=== PATIENT | female | born 1965 | race Caucasian/White ===

== ENCOUNTER → 2018-05-10 | Outpatient (CLI) | payer OTHER ==
--- NOTE | 2018-05-13 13:40 | MM ---
Reason for exam: screening (asymptomatic). Last mammogram was performed 1 year and 10 months ago. History: Patient is postmenopausal. Family history of premenopausal breast cancer in mother at age 50. Physical Findings: A clinical breast exam by your physician is recommended on an annual basis and results should be correlated with mammographic findings. MG Screening Mammo w CAD Bilateral CC and MLO view(s) were taken. Prior study comparison: July 14, 2016, bilateral MG screening mammo w CAD. June 24, 2015, bilateral MG screening mammo w CAD. There are scattered fibroglandular densities. Benign calcifications bilaterally. No significant changes when compared with prior studies. ASSESSMENT: Benign, BI-RAD 2 RECOMMENDATION: Routine screening mammogram of both breasts in 1 year.
== END | disposition home or self-care (01) ==
LOC: RADMAMWWP 13:32
PROVIDERS: ATTEND Family Medicine
DX: Z12.31 Encounter for screening mammogram for malignant neoplasm of breast (principal); Z80.3 Family history of malignant neoplasm of breast
CPT/HCPCS: 77067

== ENCOUNTER 2018-09-27 13:37 | Emergency (ER) | payer OTHER ==
[2018-09-27 14:07] VITALS: BP 146/93; PULSE 85; RESP 16; TEMP 98.5
[2018-09-27] MEDS ORDERED: KETOROLAC 60 MG/2 ML VIAL IM STA (14:20)
[2018-09-27] MEDS ORDERED: DIPH,PERTUS(ACELL)TETVAC-LF 0.5 ML VIAL IM ONE (14:20)
--- NOTE | 2018-09-27 14:23 | ED ---
General Adult HPI - General Chief complaint: Dental/Oral Stated complaint: dental pain Source: patient, RN notes reviewed Mode of arrival: ambulatory Limitations: no limitations - History of Present Illness Initial comments: Patient is a 53-year-old female who presents the emergency department with complaint of left upper and lower dental pain. She reports that she is scheduled on Sunday for tooth extraction. She states she is taking amoxicillin and clindamycin. She also reports taking Tylenol 3. She reports she is not up to date on her tetanus vaccination. Patient denies any recent fever, chills, shortness of breath, chest pain, back pain, abdominal pain, nausea or vomiting, numbness or tingling, headaches or visual changes, or any other complaints. - Related Data Allergies Allergy/AdvReac Type Severity Reaction Status Date / Time acetaminophen Allergy Unknown Verified 09/27/18 14:08 [From Darvocet-N] cyclobenzaprine Allergy Unknown Verified 09/27/18 14:08 [From Flexeril] hydrocodone Allergy Unknown Verified 09/27/18 14:08 propoxyphene Allergy Unknown Verified 09/27/18 14:08 [From Darvocet-N] Review of Systems ROS Statement: Those systems with pertinent positive or pertinent negative responses have been documented in the HPI. ROS Other: All systems not noted in ROS Statement are negative. Past Medical History Past Medical History: Osteoarthritis (OA), Thyroid Disorder Additional Past Medical History / Comment(s): CELIAC DISEASE, FIBROMYALGIA. History of Any Multi-Drug Resistant Organisms: None Reported Past Surgical History: Orthopedic Surgery Additional Past Surgical History / Comment(s): LEFT KNEE REPLACEMENT Past Psychological History: No Psychological Hx Reported Smoking Status: Current every day smoker Past Alcohol Use History: Occasional Past Drug Use History: None Reported General Exam Limitations: no limitations General appearance: alert, in no apparent distress Head exam: Present: atraumatic, normocephalic Eye exam: Present: normal appearance ENT exam: Present: normal oropharynx, other (No visible dental abscess or drainage.) Respiratory exam: Present: normal lung sounds bilaterally Cardiovascular Exam: Present: regular rate, normal rhythm Neurological exam: Present: alert, oriented X3 Psychiatric exam: Present: normal affect, normal mood Course Vital Signs 09/27/18 14:04 Temperature 98.5 F Pulse Rate 85 Respiratory 16 Rate Blood Pressure 146/93 O2 Sat by Pulse 99 Oximetry Medical Decision Making - Medical Decision Making Updated tetanus vaccination here. Given Toradol for pain. Case discussed in detail with attending physician Dr. Ash. Disposition Clinical Impression: Toothache Disposition: HOME SELF-CARE Condition: Good Instructions (If sedation given, give patient instructions): Toothache (ED) Additional Instructions: Follow-up with your PCP in 1 to 2 days. Please keep your appointment with the oral surgeon. Use over the counter Orajel as needed. Return to the emergency department if your symptoms worsen or other concerns. Is patient prescribed a controlled substance at d/c from ED?: No Referrals: Mandy Navarrete DO [Primary Care Provider] - 1-2 days Time of Disposition: 15:36
== END 2018-09-27 15:45 | disposition home or self-care (01) ==
LOC: EC 13:37
DX: K08.89 Other specified disorders of teeth and supporting structures (principal); Z23 Encounter for immunization; F17.200 Nicotine dependence, unspecified, uncomplicated; Z88.6 Allergy status to analgesic agent; Z88.5 Allergy status to narcotic agent; Z88.8 Allergy status to other drugs, medicaments and biological substances; Z96.652 Presence of left artificial knee joint
CPT/HCPCS: 90715; 99282; 90471; 96372; J1885

== ENCOUNTER 2020-02-04 19:19 | Emergency (ER) | payer OTHER ==
[2020-02-04 19:23] VITALS: BP 136/83; PULSE 82; RESP 18; TEMP 98.3
[2020-02-04] MEDS ORDERED: LIDOCAINE 1% INJ 10MG/ML (20 ML MDV) SQ ONE (19:42)
[2020-02-04] MEDS ORDERED: AMOXIC-POT CLAV 875MG STARTER PACK 2 TAB BTL PO STA (19:42)
--- NOTE | 2020-02-04 19:50 | ED ---
Animal Bite HPI - General Chief Complaint: Animal Bite Stated Complaint: Dog Bite Time Seen by Provider: 02/04/20 19:27 Source: patient, RN notes reviewed, old records reviewed Mode of arrival: ambulatory Limitations: no limitations - History of Present Illness Initial Comments: Tabatha is a 54-year-old female presents emergency department today for evaluation with complaints of dog bite over her right thenar eminence. She has a small puncture wound where her own cockatoo bit her. Patient reports that the dog is up-to-date on vaccines and she is up-to-date on her tetanus within the last 5 years. Patient states that she has full range of motion of the thumb. She denies any other injuries at this time. - Related Data Previous Rx's Medication Instructions Recorded Amoxic-Pot Clav 875-125Mg 1 tab PO Q12HR #20 tablet 02/04/20 [Augmentin 875-125] Fluconazole [Diflucan] 150 mg PO ONCE #3 tab 02/04/20 Allergies Allergy/AdvReac Type Severity Reaction Status Date / Time acetaminophen Allergy Unknown Verified 02/04/20 19:23 [From Darvocet-N] cyclobenzaprine Allergy Unknown Verified 02/04/20 19:23 [From Flexeril] hydrocodone Allergy Unknown Verified 02/04/20 19:23 propoxyphene Allergy Unknown Verified 02/04/20 19:23 [From Darvocet-N] Review of Systems ROS Statement: Those systems with pertinent positive or pertinent negative responses have been documented in the HPI. ROS Other: All systems not noted in ROS Statement are negative. Past Medical History Past Medical History: Osteoarthritis (OA), Thyroid Disorder Additional Past Medical History / Comment(s): CELIAC DISEASE, FIBROMYALGIA. History of Any Multi-Drug Resistant Organisms: None Reported Past Surgical History: Orthopedic Surgery Additional Past Surgical History / Comment(s): LEFT KNEE REPLACEMENT Past Psychological History: No Psychological Hx Reported Smoking Status: Current every day smoker Past Alcohol Use History: Occasional Past Drug Use History: None Reported General Exam Limitations: no limitations General appearance: alert, in no apparent distress Head exam: Present: atraumatic, normocephalic, normal inspection Eye exam: Present: normal appearance, PERRL, EOMI. Absent: scleral icterus, conjunctival injection, periorbital swelling ENT exam: Present: normal exam, mucous membranes moist Neck exam: Present: normal inspection. Absent: tenderness, meningismus, lymphadenopathy Respiratory exam: Present: normal lung sounds bilaterally. Absent: respiratory distress, wheezes, rales, rhonchi, stridor Cardiovascular Exam: Present: regular rate, normal rhythm, normal heart sounds. Absent: systolic murmur, diastolic murmur, rubs, gallop, clicks GI/Abdominal exam: Present: soft, normal bowel sounds. Absent: distended, tenderness, guarding, rebound, rigid Extremities exam: Present: normal inspection, full ROM, normal capillary refill. Absent: tenderness, pedal edema, joint swelling, calf tenderness Right Forearm Wrist exam: Present: normal inspection, full ROM Hand Wrist exam: Present: full ROM, tenderness (over thenar eminece near dog bite puncture wound), other (Patient is a less than 1 cm puncture wound over the right thenar eminence.). Absent: normal inspection Vascular: Present: normal capillary refill Back exam: Present: normal inspection, full ROM Neurological exam: Present: alert, oriented X3, CN II-XII intact Psychiatric exam: Present: normal affect, normal mood Skin exam: Present: warm, dry, intact, normal color. Absent: rash Course Vital Signs 02/04/20 19:22 Temperature 98.3 F Pulse Rate 82 Respiratory 18 Rate Blood Pressure 136/83 O2 Sat by Pulse 99 Oximetry Procedures - Incision & Drainage Indication: puncutre wound with fat hanging out Site: hand Anesthetic Used: lidocaine 1% Amount (mLs): 1 I&D Cleaning Method: Iodine Sterile Field Used?: Yes Patient Tolerated Procedure: well (Removed the small fat the has fits pain for the puncture wound. Wound was thoroughly irrigated and closed with Band-Aid.) Medical Decision Making - Medical Decision Making 34 rolled female presents emergency department today for a dog bite puncture wound over the right thenar eminence. This is her own dog and she and the dog are up-to-date on vaccines and she is given Augmentin and does request a prescription for Diflucan for concern for yeast infection. Patient's wound was anesthetized with lidocaine and a small piece of fat that was hanging from the wound was removed. Patient tolerated procedure well. Discussed Patient follow- up with primary care doctor and monitor for infection. Patient understands treatment plan. Disposition Clinical Impression: Dog bite Disposition: HOME SELF-CARE Condition: Good Instructions (If sedation given, give patient instructions): Animal Bite (ED) Additional Instructions: Please use medication as discussed. Keep wound covered. Monitor for any signs of infection including redness swelling or drainage. Please follow up with family doctor if symptoms have not improved over the next two days. Please return to the emergency room if your symptoms increase or worsen or for any other concerns. Prescriptions: Amoxic-Pot Clav 875-125Mg [Augmentin 875-125] 1 tab PO Q12HR #20 tablet Fluconazole [Diflucan] 150 mg PO ONCE #3 tab Is patient prescribed a controlled substance at d/c from ED?: No Referrals: Mandy Navarrete DO [Primary Care Provider] - 1-2 days Time of Disposition: 19:49
== END 2020-02-04 20:30 | disposition home or self-care (01) ==
LOC: EC 19:19
DX: S61.431A Puncture wound without foreign body of right hand, initial encounter (principal); M19.90 Unspecified osteoarthritis, unspecified site; F17.200 Nicotine dependence, unspecified, uncomplicated; Z96.651 Presence of right artificial knee joint; Z88.6 Allergy status to analgesic agent; Z88.5 Allergy status to narcotic agent; Z88.8 Allergy status to other drugs, medicaments and biological substances; W54.0XXA Bitten by dog, initial encounter; Y93.89 Activity, other specified; Y92.009 Unspecified place in unspecified non-institutional (private) residence as the place of occurrence of the external cause
CPT/HCPCS: 99283; J2001

== ENCOUNTER 2020-02-05 17:47 | Inpatient (IN) | payer OTHER ==
[2020-02-05] MEDS ORDERED: AMPICILLIN-SULBACTAM 3 GM in SODIUM CHLORIDE 0.9% 100 ML IVPB STA (19:07)
--- NOTE | 2020-02-05 19:44 | ED ---
General Adult HPI - General Source: patient Mode of arrival: ambulatory Limitations: no limitations <Tabatha Ospina - Last Filed: 02/06/20 01:27> <Malini Ruelas - Last Filed: 02/08/20 15:33> - General Chief complaint: Extremity Injury, Upper Stated complaint: Dog bite-revisit Time Seen by Provider: 02/05/20 18:33 - History of Present Illness Initial comments: Patient is a 54-year-old female presenting to the emergency department for a recheck of a dog bite injury that she had yesterday. Patient states she returned today because she is noticing a red streak going up her arm. Patient states she did take 2 doses of Augmentin but when she noticed the red streaking she came back to the ER. She denies having a fever, chills, nausea, vomiting. She states the dog is her own and is fully up-to-date on vaccines. Tetanus is up-to-date. She also states there has been some mild purulent drainage from the wound as well. She states the area around the wound also seems more painful than yesterday. She is no further complaints this time. Upon arrival to the ER, patient's vitals are stable, afebrile. (Tabatha Ospina) - Related Data Home Medications Medication Instructions Recorded Confirmed Acetaminophen-Codeine 300-30mg 1 tab PO TID PRN 02/05/20 02/05/20 [Tylenol w/codeine #3] Aspirin EC [Ecotrin Low Dose] 81 mg PO DAILY 02/05/20 02/05/20 Celecoxib [CeleBREX] 200 mg PO BID 02/05/20 02/05/20 Levothyroxine Sodium [Synthroid] 75 mcg PO DAILY 02/05/20 02/05/20 Pantoprazole [Protonix] 40 mg PO DAILY 02/05/20 02/05/20 Previous Rx's Medication Instructions Recorded Amoxic-Pot Clav 875-125Mg 1 tab PO BID 3 Days #6 tab 02/07/20 [Augmentin 875-125] Nicotine 21Mg/24Hr Patch [Habitrol] 1 patch TRANSDERM DAILY #30 patch 02/08/20 Allergies Allergy/AdvReac Type Severity Reaction Status Date / Time acetaminophen Allergy Rash/Hives Verified 02/05/20 23:43 [From Darvocet-N] corn Allergy Rash/Hives Verified 02/05/20 23:43 cyclobenzaprine Allergy Rash/Hives Verified 02/05/20 23:43 [From Flexeril] gluten Allergy Rash/Hives Verified 02/05/20 23:43 hydrocodone Allergy Itching Verified 02/05/20 23:43 milk Allergy migraines Verified 02/05/20 23:43 propoxyphene Allergy Rash/Hives Verified 02/05/20 23:43 [From Darvocet-N] soy Allergy Rash/Hives Verified 02/05/20 23:43 wheat Allergy Rash/Hives Verified 02/05/20 23:43 Review of Systems ROS Other: All systems not noted in ROS Statement are negative. <Tabatha Ospina - Last Filed: 02/06/20 01:27> ROS Other: All systems not noted in ROS Statement are negative. <Malini Ruelas - Last Filed: 02/08/20 15:33> ROS Statement: Those systems with pertinent positive or pertinent negative responses have been documented in the HPI. Past Medical History Past Medical History: Osteoarthritis (OA), Thyroid Disorder Additional Past Medical History / Comment(s): CELIAC DISEASE, FIBROMYALGIA. History of Any Multi-Drug Resistant Organisms: None Reported Past Surgical History: Orthopedic Surgery Additional Past Surgical History / Comment(s): LEFT rt, KNEE REPLACEMENT Past Psychological History: No Psychological Hx Reported Smoking Status: Current every day smoker Past Alcohol Use History: Occasional Past Drug Use History: None Reported - Past Family History Father Family Medical History: Cancer Additional Family Medical History / Comment(s): colon, lung Mother Family Medical History: Cancer Additional Family Medical History / Comment(s): bone and breast ca <Tabatha Ospina - Last Filed: 02/06/20 01:27> General Exam Limitations: no limitations <Tabatha Ospina - Last Filed: 02/06/20 01:27> - General Exam Comments Initial Comments: GENERAL: Well-appearing, well-nourished and in no acute distress. HEAD: Atraumatic, normocephalic. EYES: Pupils equal round and reactive to light, extraocular movements intact, sclera anicteric, conjunctiva are normal. ENT: TMs normal, nares patent, oropharynx clear without exudates. Moist mucous membranes. NECK: Normal range of motion, supple without lymphadenopathy or JVD. LUNGS: Breath sounds clear to auscultation bilaterally and equal. No wheezes rales or rhonchi. HEART: Regular rate and rhythm without murmurs, rubs or gallops. ABDOMEN: Soft, nontender, normoactive bowel sounds. No guarding, no rebound. No masses appreciated. : Deferred EXTREMITIES: Full range of motion of the right hand and fingers. Neurovascular intact. No clubbing or cyanosis. NEUROLOGICAL: Cranial nerves II through XII grossly intact. Normal speech, normal gait. PSYCH: Normal mood, normal affect. SKIN: Warm, Dry, normal turgor. Patient has a single dog bite wound to the palmar aspect of the right hand, at the base of the thumb. There is moderate amount of surrounding erythema and swelling around the puncture wound as well as an eryt hematous red streak going up the palmar aspect of the forearm to about the medial elbow. (Tabatha Ospina) Course Vital Signs 02/05/20 02/05/20 18:28 22:21 Temperature 98.7 F 98.9 F Pulse Rate 66 68 Respiratory 18 18 Rate Blood Pressure 134/64 140/88 O2 Sat by Pulse 99 97 Oximetry Medical Decision Making - Lab Data Result diagrams: 02/05/20 19:27 02/05/20 19:27 <Tabatha Ospina - Last Filed: 02/06/20 01:27> - Lab Data Result diagrams: 02/07/20 06:24 02/07/20 06:24 <Malini Ruelas - Last Filed: 02/08/20 15:33> - Medical Decision Making Patient is a 54-year-old female here for a recheck of a dog bite that happened yesterday. Patient is a single puncture wound on the palmar aspect of the right hand at the base of the thumb. She came back today for a large red streak extending up into the medial aspect of her elbow. Vitals are stable. Labs show no acute process. Patient was given dose of Unasyn in the ER. X-ray shows no acute abnormality. Patient will be admitted to continue with IV antibiotics and monitor. Dr. Navarrete is in agreement with this plan and accepts the patient. Patient is in agreement with this plan of care. Case discussed with Dr. Ruelas. (Tabatha Ospina) I was available for consultation in the emergency department. The history and physical exam were done by the midlevel provider. I was consulted for this patients care. I reviewed the case with the midlevel provider and based on their presentation of the patient, I agree with the assessment, medical decision making and plan of care as documented. Chart was dictated using [employer] dictation software. Attempts were made to correct any dictation errors however some typographical errors may persist. Patient was seen during a national state of emergency due to the Covid-19 pa ndemic. (Malini Ruelas) - Lab Data Lab Results 02/05/20 02/05/20 02/05/20 Range/Units 19:27 19:27 22:00 WBC 8.2 (3.8-10.6) k/uL RBC 5.14 (3.80-5.40) m/uL Hgb 15.6 (11.4-16.0) gm/dL Hct 47.5 H (34.0-46.0) % MCV 92.4 (80.0-100.0) fL MCH 30.5 (25.0-35.0) pg MCHC 33.0 (31.0-37.0) g/dL RDW 13.5 (11.5-15.5) % Plt Count 201 (150-450) k/uL Neutrophils % 61 % Lymphocytes % 30 % Monocytes % 4 % Eosinophils % 2 % Basophils % 1 % Neutrophils # 5.0 (1.3-7.7) k/uL Lymphocytes # 2.5 (1.0-4.8) k/uL Monocytes # 0.4 (0-1.0) k/uL Eosinophils # 0.1 (0-0.7) k/uL Basophils # 0.1 (0-0.2) k/uL ESR 8 (0-20) mm/hr Sodium 140 (137-145) mmol/L Potassium 3.6 (3.5-5.1) mmol/L Chloride 106 (98-107) mmol/L Carbon Dioxide 27 (22-30) mmol/L Anion Gap 7 mmol/L BUN 9 (7-17) mg/dL Creatinine 0.69 (0.52-1.04) mg/dL Est GFR (CKD-EPI)AfAm >90 (>60 ml/min/1.73 sqM) Est GFR (CKD-EPI)NonAf >90 (>60 ml/min/1.73 sqM) Glucose 87 (74-99) mg/dL Calcium 9.4 (8.4-10.2) mg/dL Total Bilirubin 0.6 (0.2-1.3) mg/dL AST 22 (14-36) U/L ALT 20 (4-34) U/L Alkaline Phosphatase 82 (38-126) U/L C-Reactive Protein 8.3 (<10.0) mg/L Total Protein 7.1 (6.3-8.2) g/dL Albumin 4.5 (3.5-5.0) g/dL Coronavirus (PCR) Not Detected (Not Detected) 02/07/20 02/07/20 Range/Units 06:24 06:24 WBC 5.1 (3.8-10.6) k/uL RBC 4.45 (3.80-5.40) m/uL Hgb 14.0 (11.4-16.0) gm/dL Hct 41.9 (34.0-46.0) % MCV 94.2 (80.0-100.0) fL MCH 31.4 (25.0-35.0) pg MCHC 33.3 (31.0-37.0) g/dL RDW 13.8 (11.5-15.5) % Plt Count 167 (150-450) k/uL Neutrophils % 42 % Lymphocytes % 48 % Monocytes % 5 % Eosinophils % 3 % Basophils % 1 % Neutrophils # 2.1 (1.3-7.7) k/uL Lymphocytes # 2.5 (1.0-4.8) k/uL Monocytes # 0.3 (0-1.0) k/uL Eosinophils # 0.1 (0-0.7) k/uL Basophils # 0.0 (0-0.2) k/uL ESR (0-20) mm/hr Sodium 141 (137-145) mmol/L Potassium 4.0 (3.5-5.1) mmol/L Chloride 112 H (98-107) mmol/L Carbon Dioxide 26 (22-30) mmol/L Anion Gap 3 mmol/L BUN 8 (7-17) mg/dL Creatinine 0.61 (0.52-1.04) mg/dL Est GFR (CKD-EPI)AfAm >90 (>60 ml/min/1.73 sqM) Est GFR (CKD-EPI)NonAf >90 (>60 ml/min/1.73 sqM) Glucose 85 (74-99) mg/dL Calcium 8.6 (8.4-10.2) mg/dL Total Bilirubin (0.2-1.3) mg/dL AST (14-36) U/L ALT (4-34) U/L Alkaline Phosphatase (38-126) U/L C-Reactive Protein (<10.0) mg/L Total Protein (6.3-8.2) g/dL Albumin (3.5-5.0) g/dL Coronavirus (PCR) (Not Detected) Disposition Is patient prescribed a controlled substance at d/c from ED?: No Decision Date: 02/05/20 Decision Time: 21:10 <Tabatha Ospina - Last Filed: 02/06/20 01:27> <Malini Ruelas - Last Filed: 02/08/20 15:33> Clinical Impression: Dog bite, Cellulitis of right hand Disposition: ADMITTED IP TO THIS [facility] Condition: Stable
[2020-02-05 19:45] LABS: Basophils # (A) 0.1 k/uL (0-0.2); Basophils % (A) 1 %; Eosinophils # (A) 0.1 k/uL (0-0.7); Eosinophils % (A) 2 %; HCT 47.5 % (34.0-46.0); HGB 15.6 gm/dL (11.4-16.0); Lymphocytes # (A) 2.5 k/uL (1.0-4.8); Lymphocytes % (A) 30 %; MCH 30.5 pg (25.0-35.0); MCV 92.4 fL (80.0-100.0); Mean Platelet Volume 7.3; Monocytes # (A) 0.4 k/uL (0-1.0); Monocytes % (A) 4 %; Neutrophils % (A) 61 %; Platelet Count 201 k/uL (150-450); RBC 5.14 m/uL (3.80-5.40); RDW 13.5 % (11.5-15.5); WBC 8.2 k/uL (3.8-10.6)
[2020-02-05 19:51] LABS: ALT 20 U/L (4-34); AST 22 U/L (14-36); African American GFR (CKD) >90 (>60 ml/min/1.73 sqM); Albumin 4.5 g/dL (3.5-5.0); Alkaline Phosphatase 82 U/L (38-126); Anion Gap 7 mmol/L; Blood Urea Nitrogen 9 mg/dL (7-17); C Reactive Protein 8.3 mg/L (<10.0); Calcium 9.4 mg/dL (8.4-10.2); Carbon Dioxide 27 mmol/L (22-30); Chloride 106 mmol/L (98-107); Glucose 87 mg/dL (74-99); Non-African American GFR(CKD) >90 (>60 ml/min/1.73 sqM); Potassium 3.6 mmol/L (3.5-5.1); Sodium 140 mmol/L (137-145); Total Bilirubin 0.6 mg/dL (0.2-1.3); Total Protein 7.1 g/dL (6.3-8.2)
--- NOTE | 2020-02-05 20:13 | XR ---
PROCEDURE: XR hand limited RT - 2V DATE AND TIME: 02/05/2020 7:54 PM CLINICAL INDICATION: [facility]; dog bite TECHNIQUE: Department protocol COMPARISON: None FINDINGS: The soft tissues are unremarkable. The bones and joints are intact. Mild scattered osteoarthritis changes are appreciated. IMPRESSION: No acute radiographic process.
[2020-02-05] MEDS ORDERED: NALOXONE 0.4 MG/ML 1 ML VIAL IV PRN (21:08)
[2020-02-05] MEDS ORDERED: ONDANSETRON 4 MG/2 ML VIAL IVP PRN (21:08)
[2020-02-05 21:17] LABS: Erythrocyte Sedimentation Rate 8 mm/hr (0-20)
[2020-02-05] MEDS: SODIUM CHLORIDE 0.9% 1,000 ML IV SCH (22:21)
[2020-02-05] MEDS ORDERED: KETOROLAC 30 MG/ML 1 ML VIAL IVP PRN (23:05)
[2020-02-05] MEDS ORDERED: IBUPROFEN 400 MG TAB PO PRN (23:05)
[2020-02-06] MEDS: AMPICILLIN-SULBACTAM 3 GM in SODIUM CHLORIDE 0.9% 100 ML IVPB SCH ×3 (04:10→20:38)
[2020-02-06] MEDS: SODIUM CHLORIDE 0.9% 1,000 ML IV SCH (08:45)
[2020-02-06] MEDS: PANTOPRAZOLE 40 MG TABLET PO SCH (10:00)
[2020-02-06] MEDS: LEVOTHYROXINE 75 MCG TAB PO SCH (10:00)
[2020-02-06] MEDS ORDERED: ALPRAZolam 0.25 MG TAB PO PRN (22:26)
[2020-02-06] MEDS: NICOTINE 21MG/24HR PATCH TRANSDERM SCH (23:03)
[2020-02-06] MEDS ORDERED: Acetaminophen-Codeine 300-30mg TAB PO PRN (23:28)
--- NOTE | 2020-02-06 23:35 | P.HPIM ---
History of Present Illness H&P Date: 02/06/20 Jamel Traylor is a 54-year-old female who presented to the ED complaining of worsening dog bite x2 days. She was seen shortly after the bite and irrigated it and was given a prescription for augmentin. She did take two doses but her wound worsened with a streak of erythema traveling up her RUE. She denies having a fever, chills, nausea, vomiting. She states the dog is her own and is fully up-to-date on vaccines. Tetanus is up-to-date. She also states there has been some mild purulent drainage from the wound as well. She states the area around the wound also seems more painful than yesterday. She is no further complaints this time. Upon arrival to the ER, patient's vitals are stable, afebrile. Review of Systems All systems: negative Constitutional: Reports malaise, Denies chills, Denies fever Eyes: denies blurred vision, denies pain Ears, nose, mouth and throat: Denies headache, Denies sore throat Cardiovascular: Denies chest pain, Denies shortness of breath Respiratory: Denies cough Gastrointestinal: Denies abdominal pain, Denies diarrhea, Denies nausea, Denies vomiting Genitourinary: Denies dysuria, Denies hematuria Musculoskeletal: Denies myalgias Integumentary: Reports color changes, Reports wounds, Denies pruritus, Denies rash Neurological: Denies numbness, Denies weakness Psychiatric: Denies anxiety, Denies depression Endocrine: Denies fatigue, Denies weight change Past Medical History Past Medical History: Osteoarthritis (OA), Thyroid Disorder Additional Past Medical History / Comment(s): CELIAC DISEASE, FIBROMYALGIA. History of Any Multi-Drug Resistant Organisms: None Reported Past Surgical History: Orthopedic Surgery Additional Past Surgical History / Comment(s): LEFT rt, KNEE REPLACEMENT Past Anesthesia/Blood Transfusion Reactions: No Reported Reaction Past Psychological History: No Psychological Hx Reported Smoking Status: Current every day smoker Past Alcohol Use History: Occasional Past Drug Use History: None Reported - Past Family History Father Family Medical History: Cancer Additional Family Medical History / Comment(s): colon, lung Mother Family Medical History: Cancer Additional Family Medical History / Comment(s): bone and breast ca Medications and Allergies Home Medications Medication Instructions Recorded Confirmed Type Acetaminophen-Codeine 300-30mg 1 tab PO TID PRN 06/04/20 06/04/20 History [Tylenol w/codeine #3] Aspirin EC [Ecotrin Low Dose] 81 mg PO DAILY 02/05/20 02/05/20 History Celecoxib [CeleBREX] 200 mg PO BID 02/05/20 02/05/20 History Levothyroxine Sodium [Synthroid] 75 mcg PO DAILY 02/05/20 02/05/20 History Pantoprazole [Protonix] 40 mg PO DAILY 02/05/20 02/05/20 History Allergies Allergy/AdvReac Type Severity Reaction Status Date / Time acetaminophen Allergy Rash/Hives Verified 02/05/20 23:43 [From Darvocet-N] corn Allergy Rash/Hives Verified 02/05/20 23:43 cyclobenzaprine Allergy Rash/Hives Verified 02/05/20 23:43 [From Flexeril] gluten Allergy Rash/Hives Verified 02/05/20 23:43 hydrocodone Allergy Itching Verified 02/05/20 23:43 milk Allergy migraines Verified 02/05/20 23:43 propoxyphene Allergy Rash/Hives Verified 02/05/20 23:43 [From Darvocet-N] soy Allergy Rash/Hives Verified 02/05/20 23:43 wheat Allergy Rash/Hives Verified 02/05/20 23:43 Physical Exam Vitals: Vital Signs Temp Pulse Resp BP Pulse Ox 02/06/20 23:00 98.3 F 76 18 161/97 98 02/06/20 18:52 98.4 F 61 18 135/81 99 02/06/20 16:15 98.7 F 62 18 95 02/06/20 12:05 98.4 F 60 16 147/95 98 02/06/20 08:20 98.1 F 60 18 143/81 99 02/06/20 00:30 56 L 18 02/05/20 23:58 98.2 F 56 L 18 153/90 99 Intake and Output 02/06/20 02/06/20 02/07/20 14:59 22:59 06:59 Other: Voiding Method Toilet # Voids 3 1 General: well nourished, well developed, NAD. Vitals reviewed Eyes: PERRL, EOMI, conjunctiva normal HENT: normocephalic, mucus membranes moist Neck: supple, no JVD Lungs: normal respiratory effort, no wheezes or rales CV: Regular rate and rhythm, no murmur. Peripheral pulses 2+ Abdomen: soft, nondistended, no organomegaly Lymph: no cervical or axillary LAD Skin: warm and dry. R hand erythema and puncture wound in webbing between thumb and index digit. Significantly diminished erythema to medial forearm Neuro: A&Ox3, normal mood and affect Results CBC & Chem 7: 02/05/20 19:27 02/05/20 19:27 Labs: Microbiology - Last 24 Hours (Table) 02/05/20 19:27 Blood Culture - Preliminary Blood No Growth after 24 hours Thrombosis Risk Factor Assmnt - Choose All That Apply Each Factor Represents 1 point: Age 41-60 years Other Risk Factors: No Other congenital or acquired thrombophilia - If yes, enter type in comment: No Thrombosis Risk Factor Assessment Total Risk Factor Score: 1 Thrombosis Risk Factor Assessment Level: Low Risk Assessment and Plan (1) Cellulitis of right hand Current Visit: Yes Status: Acute Code(s): L03.113 - CELLULITIS OF RIGHT U PPER LIMB SNOMED Code(s): 51226920 (2) Dog bite Current Visit: Yes Status: Acute Code(s): W54.0XXA - BITTEN BY DOG, INITIAL ENCOUNTER SNOMED Code(s): 495819398 Plan: 1. Cellulitis. Start IV unasyn. Follow blood cultures 2. Hypothyroidism. Cont synthroid 3. GERD. Protonix
[2020-02-07] MEDS: AMPICILLIN-SULBACTAM 3 GM in SODIUM CHLORIDE 0.9% 100 ML IVPB SCH ×4 (02:12→20:14)
--- NOTE | 2020-02-07 06:29 | HP ---
HISTORY AND PHYSICAL DATE OF SERVICE: 02/06/2020 CHIEF COMPLAINTS: Pain and swelling of the right hand. HISTORY OF PRESENT ILLNESS: This 54-year-old woman with a past medical history of multiple medical problems including DJD, history of the celiac disease, fibromyalgia, being followed by Dr. Erick Navarrete in the outpatient setting was bitten by her own dog on the right hand in the thenar area and then the patient steadily noted tracking redness in the arm and the patient came to [facility] and admitted for further evaluation and treatment. There is no history of fever, rigors. No headache, loss of consciousness, seizures. PAST MEDICAL HISTORY: History of DJD, history of hypothyroidism, history of celiac disease, fibromyalgia. MEDICATIONS PRIOR TO ADMISSION: 1. Protonix 40 mg p.o. daily. 2. Synthroid 75 mcg p.o. daily. 3. Celebrex 200 mg p.o. daily. 4. Ecotrin 81 mg. 5. Tylenol No.3. ALLERGIES: TYLENOL, DARVOCET-N 100, CORN, FLEXERIL, GLUTEN, HYDROCODONE, MILK, PROPOXYPHENE, SOY FERREIRA. FAMILY HISTORY: History of cancer, colon, lung. SOCIAL HISTORY: History of current smoking. No history of alcohol intake. REVIEW OF SYSTEMS: ENT No history of diminished hearing or vision. CARDIOVASCULAR No angina or palpitations. RESPIRATORY As mentioned earlier. GI No nausea, vomiting, or diarrhea. No dysuria or hematuria. NERVOUS No numbness or weakness. ALLERGY/IMMUNOLOGY No asthma or hayfever. MUSCULOSKELETAL As mentioned earlier. HEMATOLOGY/ONCOLOGY Negative. ENDOCRINE No history of diabetes. DERMATOLOGY Negative. RHEUMATOLOGY Negative. CONSTITUTIONAL As mentioned earlier. PSYCHIATRY As mentioned earlier. PHYSICAL EXAM: Patient is alert, oriented x3. Pulse is 76, blood pressure 160/97, respiration 18, temperature 98.2, pulse ox 98% on room air . HEENT: Conjunctivae normal. Oral mucosa moist. NECK: No jugular venous distention. No lymph node enlargement. CARDIOVASCULAR: S1, S2. RESPIRATORY: Diminished breath sounds at the bases. No rhonchi, no crackles. ABDOMEN: Soft, nontender. LEGS: No edema, no swelling. Right thenar eminence tenderness and erythema up the arm. Movements of the hand are also slightly painful, improved much. NERVOUS SYSTEM: No focal deficits. SKIN: As mentioned. JOINTS: No active deforming arthropathy. LABS: At this time WBC 8.2 and hemoglobin 15.2. ASSESSMENT: 1. Dog bite, right hand with lymphangitis present on admission with severe pain. 2. Degenerative joint disease. 3. Hypothyroidism. 4. History of celiac disease. 5. Fibromyalgia. 6. Degenerative joint disease. 7. History of left knee joint replacement. 8. Continued ongoing nicotine dependence. 9. FULL CODE. RECOMMENDATIONS AND DISCUSSION: In this 54-year-old woman who presented with multiple complex medical issues, we will monitor the patient closely, continue the current management, continue symptomatic treatment. Will continue with IV Unasyn every 6 hours. Otherwise, we will continue to monitor. Follow the cultures. Repeat labs. Symptomatic treatment. DVT prophylaxis. Guarded prognosis because of multiple complex medical complaints. MMODL / IJN: [id number] /
[2020-02-07] MEDS: SODIUM CHLORIDE 0.9% 1,000 ML IV SCH (06:54)
[2020-02-07] MEDS: PANTOPRAZOLE 40 MG TABLET PO SCH (06:54)
[2020-02-07] MEDS: LEVOTHYROXINE 75 MCG TAB PO SCH (06:54)
[2020-02-07 07:33] LABS: Basophils % (A) 1 %; Eosinophils # (A) 0.1 k/uL (0-0.7); Eosinophils % (A) 3 %; HCT 41.9 % (34.0-46.0); Lymphocytes # (A) 2.5 k/uL (1.0-4.8); Lymphocytes % (A) 48 %; MCH 31.4 pg (25.0-35.0); MCHC 33.3 g/dL (31.0-37.0); MCV 94.2 fL (80.0-100.0); Mean Platelet Volume 7.3; Monocytes # (A) 0.3 k/uL (0-1.0); Monocytes % (A) 5 %; Neutrophils # (A) 2.1 k/uL (1.3-7.7); Neutrophils % (A) 42 %; Platelet Count 167 k/uL (150-450); RBC 4.45 m/uL (3.80-5.40); RDW 13.8 % (11.5-15.5); WBC 5.1 k/uL (3.8-10.6)
[2020-02-07 07:41] LABS: African American GFR (CKD) >90 (>60 ml/min/1.73 sqM); Anion Gap 3 mmol/L; Blood Urea Nitrogen 8 mg/dL (7-17); Calcium 8.6 mg/dL (8.4-10.2); Carbon Dioxide 26 mmol/L (22-30); Chloride 112 mmol/L (98-107); Glucose 85 mg/dL (74-99); Non-African American GFR(CKD) >90 (>60 ml/min/1.73 sqM); Sodium 141 mmol/L (137-145)
[2020-02-07] MEDS: ASPIRIN 81 MG PO SCH (08:42)
[2020-02-07] MEDS: MELOXICAM 7.5 MG TAB PO SCH (08:43)
--- NOTE | 2020-02-07 17:23 | PN ---
PROGRESS NOTE DATE OF SERVICE: 02/07/2020 This 54-year-old woman was admitted with pain and swelling of the right hand after a dog bite is on IV antibiotics. No chest pain. No palpitations. No fever. Slight swelling is noted. PHYSICAL EXAMINATION: Alert and oriented x3. Pulse is 60. Blood pressure 130/90, respiration 20, temperature 98.2. Pulse ox 100 percent on room air. HEENT: Conjunctivae normal. NECK: No JVD. CARDIOVASCULAR: S1, S2. RESPIRATIONS: Breath sounds diminished in the bases. No rhonchi. No crackles. ABDOMEN is soft, nontender. LEGS: No edema. No swelling. NERVOUS SYSTEM: No focal deficits. Examination of the right thumb area minimal induration and erythema present. LAB STUDIES: CBC within normal limits. Sodium 140, potassium 4 and chloride is 112. ASSESSMENT: 1. Dog bite, right hand with lymphangitis present on admission with severe pain. 2. Degenerative joint disease. 3. Hypothyroidism. 4. History of celiac disease. 5. Fibromyalgia. 6. Degenerative joint disease. 7. History of left knee replacement. 8. Continued ongoing nicotine dependence. 9. FULL CODE. RECOMMENDATIONS AND DISCUSSION: In this 54-year-old woman who presented with multiple complex medical issues, we will monitor the patient closely, continue the current medications, symptomatic treatment. I would recommend to continue IV antibiotics in the form of Unasyn. Cultures are negative so far. I would also recommend orthopedic evaluation also regarding the hand infection. Prognosis guarded. Further recommendations to follow. MMODL / IJN: [id number] /
--- NOTE | 2020-02-07 17:44 | P.CNOR ---
History of Present Illness - HPI Consult date: 02/07/20 Consult reason: other History of present illness: Patient is seen and examined at bedside in regards to her right hand. Patient is right-hand dominant 54-year-old female she is very pleasant and cooperative for the exam. Apparently she was bitten by her dog which is a cockup who on Sunday. She had some swelling at the area presented to the emergency room was given amoxicillin but area was worsening and she presented again to the hospital where she is having severe worsening reddening and swelling at her base of her right thumb with streaking redness of her right forearm volarly. Patient is having pain she is not having fevers. She was admitted to the hospital for IV antibiotics. She has been on Augmentin and has had significant improvement. The streaking is gone and the erythema is essentially gone. She has one area around her thenar eminence of her thumb. She says it is mildly sore at the puncture site but there is no problem and her fingers or thumb. She is without any problems at her wrist or her arm. She denies any fevers or chills. Review of Systems As stated per HPI. She is currently having no pain in her other fingers or in her thumb. She has some mild tenderness around the puncture site of her thenar eminence otherwise she feels her compartments are soft and she has good motion with good sensation around her hand. She denies any fevers chills. She feels her antibiotics have been doing very well for her. Past Medical History Past Medical History: Osteoarthritis (OA), Thyroid Disorder Additional Past Medical History / Comment(s): CELIAC DISEASE, FIBROMYALGIA., Reports of ankylosing spondylitis History of Any Multi-Drug Resistant Organisms: None Reported Past Surgical History: Orthopedic Surgery Additional Past Surgical History / Comment(s): LEFT rt, KNEE REPLACEMENT Past Anesthesia/Blood Transfusion Reactions: No Reported Reaction Past Psychological History: No Psychological Hx Reported Smoking Status: Current every day smoker Past Alcohol Use History: Occasional Past Drug Use History: None Reported - Past Family History Father Family Medical History: Cancer Additional Family Medical History / Comment(s): colon, lung Mother Family Medical History: Cancer Additional Family Medical History / Comment(s): bone and breast ca Medications and Allergies Home Medications Medication Instructions Recorded Confirmed Type Acetaminophen-Codeine 300-30mg 1 tab PO TID PRN 02/05/20 02/05/20 History [Tylenol w/codeine #3] Aspirin EC [Ecotrin Low Dose] 81 mg PO DAILY 02/05/20 02/05/20 History Celecoxib [CeleBREX] 200 mg PO BID 02/05/20 02/05/20 History Levothyroxine Sodium [Synthroid] 75 mcg PO DAILY 02/05/20 02/05/20 History Pantoprazole [Protonix] 40 mg PO DAILY 02/05/20 02/05/20 History Amoxic-Pot Clav 875-125Mg 1 tab PO BID 3 Days #6 tab 02/07/20 Rx [Augmentin 875-125] Allergies Allergy/AdvReac Type Severity Reaction Status Date / Time acetaminophen Allergy Rash/Hives Verified 02/05/20 23:43 [From Darvocet-N] corn Allergy Rash/Hives Verified 02/05/20 23:43 cyclobenzaprine Allergy Rash/Hives Verified 02/05/20 23:43 [From Flexeril] gluten Allergy Rash/Hives Verified 02/05/20 23:43 hydrocodone Allergy Itching Verified 02/05/20 23:43 milk Allergy migraines Verified 02/05/20 23:43 propoxyphene Allergy Rash/Hives Verified 02/05/20 23:43 [From Darvocet-N] soy Allergy Rash/Hives Verified 02/05/20 23:43 wheat Allergy Rash/Hives Verified 02/05/20 23:43 Physical Examination Osteopathic Statement: *. No significant issues noted on an osteopathic structural exam other than those noted in the History and Physical/Consult. - Wrist & Hand right Location of pain: volar hand (At her right hand there is a small 3 mm puncture wound at the thenar eminence. There is some palpable induration and possible fluid at the site. There is no significant erythema. She is tender right at the puncture wound although her compartments are very soft. She is good motion in her hand wrist fingers at her MCP joints and throughout her fingers. Sensations intact. She has no pain with passive stretch. Compartments of her forearm are soft. She has no streaking. There are some small scab formation over the bite wound.) Results - Labs Labs: Abnormal Lab Results - Last 24 Hours (Table) 02/07/20 Range/Units 06:24 Chloride 112 H (98-107) mmol/L Microbiology - Last 24 Hours (Table) 02/05/20 19:27 Blood Culture - Preliminary Blood No Growth after 24 hours H & H 02/05/20 02/07/20 Range/Units 19:27 06:24 Hgb 15.6 14.0 (11.4-16.0) gm/dL Hct 47.5 H 41.9 (34.0-46.0) % Result Diagrams: 02/07/20 06:24 02/07/20 06:24 Assessment and Plan Assessment: Status post dog bite with local wound infection Small fluid collection at the thenar eminence without evidence of tenosynovitis Significant improved infection with IV antibiotics Plan: Status post dog bite with local wound infection Small fluid collection at the thenar eminence without evidence of tenosynovitis Significant improved infection with IV antibiotics The patient has had significant improvement with her IV antibiotics. She is doing quite well. There is a small fluctuant area around the bite wound of the thenar eminence. Today at bedside I used sterile technique and a discussed with the patient possibility of taking the scab off to see if we can get some pus out of the area if there is any abscess formation. I discussed the nature of this and she was agreeable. At bedside under sterile technique I used a needle to remove the scab and 2 break up some of the tissue at the bite wound. There is no le pus. There is some hematoma that was extracted. As able get some the fluid out of the area. The fluctuance diminished significantly. I did not see any le pus or abscess area. The patient tolerated the procedure well. I was able to wrap the area with a bulky gauze dry dressing. The patient is making significant improvement with her antibiotics and we are able to open up there is also some drainage which can help if there is any purulence left. I do not find any gross purulence today. I think it is okay for her to shower and allow the area to get wet to allow some further drainage as it heals. I think it is okay for her to continue the IV antibiotic overnight 1 night but I think she can convert over to oral medications as long as she continues to improve. I think it would be okay for her to be discharged home with oral Augmentin if she continues to improve more morning. We can follow her up very closely in the office in next 1-2 days to monitor her progress. If she does have worsening we would consider formal irrigation and debridement, however it seems though she is making good progress and should go on to continue doing well with medical management after discharge tomorrow. I answered her questions best my ability in a language that she can understand and she is agreeable.
[2020-02-07 20:46] VITALS: RESP 18
[2020-02-08] MEDS: SODIUM CHLORIDE 0.9% 1,000 ML IV SCH (00:17)
[2020-02-08] MEDS: NICOTINE 21MG/24HR PATCH TRANSDERM SCH ×2 (00:18→08:14)
[2020-02-08] MEDS: AMPICILLIN-SULBACTAM 3 GM in SODIUM CHLORIDE 0.9% 100 ML IVPB SCH ×3 (02:03→13:19)
[2020-02-08] MEDS: PANTOPRAZOLE 40 MG TABLET PO SCH (06:30)
[2020-02-08] MEDS: LEVOTHYROXINE 75 MCG TAB PO SCH (06:30)
[2020-02-08] MEDS: ASPIRIN 81 MG PO SCH (08:12)
[2020-02-08] MEDS: MELOXICAM 7.5 MG TAB PO SCH (08:12)
[2020-02-08 08:21] VITALS: BP 118/70; PULSE 56; TEMP 97.7
--- NOTE | 2020-02-08 10:43 | P.PN ---
Progress Note - Text Progress Note Date: 02/08/20 Is seen and examined today at bedside. She is feeling very good. She is not having any problems in her hand or thumb. She denies any fevers or chills. Afebrile stable vital signs At her right hand there is no significant erythema there is no significant fluctuance. The small puncture area is approximately 3 mm in size and there is no active drainage. Her compartments are soft. She has full active and passive range of motion of the hand and fingers. There is some mild tenderness over the puncture wound from the bite. Assessment and plan Right upper extremity cellulitis acute secondary to dog bite, Improving Well The patient's cellulitis has greatly improved with her antibiotics. I think she can try to convert to oral antibiotics today and may be discharged home today with follow-up in the next 1-2 days. She does not need specific dressing but can put dry dressing on their encased there is any drainage. She may shower and allow the area to get wet. Yesterday who I performed some debridement superficially at the puncture site and there is no pus or purulence. I do not think that there is any specific abscess or fluid accumulation. I think it is okay for discharge home today. I'll see her back in 1-2 days. She should continue oral Augmentin. We put a prescription in the orders for this.
--- NOTE | 2020-02-09 06:30 | DS ---
DISCHARGE SUMMARY DATE OF SERVICE: 02/08/2020 FINAL DIAGNOSES: 1. Dog bite, right hand with lymphangitis, present on admission, with severe pain. 2. Degenerative joint disease. 3. Hypothyroidism. 4. History of celiac disease. 5. Fibromyalgia. 6. History of degenerative joint disease. 7. History of left knee replacement. 8. Continued ongoing nicotine dependence. 9. FULL CODE. DISCHARGE DISPOSITION: The patient will be discharged in stable condition with guarded prognosis. HISTORY OF PRESENT ILLNESS: This 54-year-old woman with a past medical history of multiple medical problems being followed by Dr. Mandy Navarrete in the outpatient setting admitted with dog bite in right thenar eminence, infection with lymphadenitis. Patient treated with broad-spectrum IV antibiotics. Patient improved significantly. On exam, vitals are stable. CARDIOVASCULAR: S1, S2 muffled. ABDOMEN: Soft. NERVOUS SYSTEM: No focal deficits. Swelling of the thenar eminence, improved significantly. The cultures are negative so far. DISCHARGE ADVICE: 1. Diet is cardiac. 2. Activity limited until followup. 3. Follow up with Dr. Cook in 2 to 3 days. 4. Follow up with Dr. Navarrete as recommended. MEDICATIONS ARE: 1. Celebrex 200 mg p.o. b.i.d. 2. Ecotrin 81 mg p.o. daily. 3. Protonix 40 mg p.o. daily. 4. Levothyroxine 75 mcg p.o. daily. 5. Tylenol with codeine 1 tablet t.i.d. p.r.n. 6. Augmentin 1 p.o. b.i.d. for 3 days. 7. Habitrol 21 daily. MMODL / IJN: [id number] /
== END 2020-02-08 14:05 | disposition home or self-care (01) | DRG 603 ==
LOC: SUPCPDRO 17:47 → EC 17:47 → 5NMEDONC 21:07 → 6PED 21:45 → OBSVTOIN 02-08 09:52
PROVIDERS: ADMIT Family Medicine; ATTEND Family Medicine
PROC: 0JDJ3ZZ Extraction of Right Hand Subcutaneous Tissue and Fascia, Percutaneous Approach (ICD-10-PCS; principal; 2020-02-07)
DX: L03.113 Cellulitis of right upper limb (principal); K21.9 Gastro-esophageal reflux disease without esophagitis; M19.90 Unspecified osteoarthritis, unspecified site; M79.7 Fibromyalgia; F17.200 Nicotine dependence, unspecified, uncomplicated; Z96.653 Presence of artificial knee joint, bilateral; E03.9 Hypothyroidism, unspecified; I88.9 Nonspecific lymphadenitis, unspecified; W54.0XXA Bitten by dog, initial encounter; Z79.899 Other long term (current) drug therapy; Z11.59 Encounter for screening for other viral diseases; Z79.890 Hormone replacement therapy; Z79.82 Long term (current) use of aspirin; Z79.1 Long term (current) use of non-steroidal anti-inflammatories (NSAID); Z88.6 Allergy status to analgesic agent; Z88.4 Allergy status to anesthetic agent; Z91.011 Allergy to milk products; Z88.5 Allergy status to narcotic agent; Z91.018 Allergy to other foods; Z80.3 Family history of malignant neoplasm of breast; Z80.0 Family history of malignant neoplasm of digestive organs; Z80.8 Family history of malignant neoplasm of other organs or systems
CPT/HCPCS: 36415; 80048; 80053; 85025; 85652; 86140; 87040; 99284

== ENCOUNTER → 2021-02-15 | Outpatient (CLI) | payer OTHER ==
--- NOTE | 2021-02-15 10:52 | XR ---
EXAMINATION TYPE: XR chest 2V, XR ribs RT DATE OF EXAM: 02/15/2021 COMPARISON: NONE HISTORY: Trauma and pain TECHNIQUE: Frontal and lateral views of the chest are obtained. 4 views of the right ribs on 5 image s. FINDINGS: There is no focal air space opacity, pleural effusion, or pneumothorax seen. The cardiac silhouette size is within normal limits. The osseous structures are intact, no evident displaced ri b fracture, mild contour abnormality noted at the ninth rib and seventh rib laterally on oblique view . Surgical clips present in the upper abdomen. IMPRESSION: No acute cardiopulmonary process. If clinical concern for occult fracture, bone scan can be performed for increased sensitivity. Findings described above, no evident displaced rib fracture, correlate for point tenderness.
== END ==
LOC: RADXRMAIN 09:22
PROVIDERS: ATTEND Family Medicine
DX: Z04.3 Encounter for examination and observation following other accident (principal); W19.XXXA Unspecified fall, initial encounter
CPT/HCPCS: 71046

== ENCOUNTER → 2022-12-05 | Outpatient (CLI) | payer OTHER ==
--- NOTE | 2022-12-05 11:31 | CT ---
EXAMINATION TYPE: CT facial bones w con CT DLP: 809 mGycm, Automated exposure control for dose reduction was used. DATE OF EXAM: 12/05/2022 9:00 AM COMPARISON: 10/23/2013. CLINICAL INDICATION:Female, 57 years old with history of R68.84, K13.70, Jaw pain, unspecified lesion s of oral mucosa TECHNIQUE: Multiple unenhanced axial CT images were obtained of the facial bones soft tissue and bone windows. Coronal, axial and sagittal reformatted images were also provided in soft tissue and bone windows and submitted for interpretation. FINDINGS: There is no evidence of fracture, subluxation, dislocation, or significant soft tissue swelling. The orbital contents are unremarkable.The temporal-mandibular joints appear symmetric. As well as portions of the spaces of the neck are relatively symmetric. There is no evidence for oral mucosal lesion on CT imaging. No lymphadenopathy identified. The paranasal sinuses are relatively cl ear. There is bilateral antrostomy changes noted. Mild mucosal thickening of the ethmoid air cells wh ich have a postsurgical appearance bilaterally. There is hypoplastic bilateral frontal sinuses. No ev idence for organizing fluid collection or osseous erosion on the teeth. Multiple cavity fillings are present. IMPRESSION: 1. No evidence for acute process. The jaw appears without evidence for fracture or osseous erosion. 2. No evidence for oral mucosal lesion on CT imaging. No lymphadenopathy. 3. Postsurgical changes to the paranasal sinuses. No significant paranasal sinus disease.
== END | disposition home or self-care (01) ==
LOC: RADCTMAIN 08:16
PROVIDERS: ATTEND Family Medicine
DX: K13.70 Unspecified lesions of oral mucosa (principal); R68.84 Jaw pain; Z98.890 Other specified postprocedural states
CPT/HCPCS: 70487; Q9967